=== PATIENT | male | born 1995 | race African-American/Black ===

== ENCOUNTER 2021-09-19 15:29 | Emergency (ER) | payer OTHER ==
[~2021-09-19] VITALS: Ht 172.7 cm; Wt 81.8 kg
[2021-09-19] MEDS ORDERED: NAPR-837 PO (17:13)
[2021-09-19 17:20] VITALS: BP 135/69
[2021-09-19 18:29] LABS: GC DNA AMPLIFICATION NEGATIVE (NEGATIVE)
== END 2021-09-19 17:22 | disposition home or self-care (01) ==
LOC: M ED 15:29
DX: S76.811A Strain of other specified muscles, fascia and tendons at thigh level, right thigh, initial encounter (principal); N50.811 Right testicular pain; X58.XXXA Exposure to other specified factors, initial encounter; Y92.9 Unspecified place or not applicable; Y93.89 Activity, other specified; Y99.9 Unspecified external cause status

== ENCOUNTER → 2022-04-23 | Outpatient (CLI) | payer OTHER ==
[~2022-04-23] MED LIST: NAPR-837 PO
== END ==
LOC: M PLAIMG 06:48
PROVIDERS: ATTEND Physician Assistant
DX: M79.642 Pain in left hand (principal); S60.012D Contusion of left thumb without damage to nail, subsequent encounter